=== PATIENT | male | born 1950 | race Caucasian/White ===

== ENCOUNTER 2017-11-29 15:59 | Emergency (ER) | payer OTHER ==
[~2017-11-29] VITALS: Ht 167.6 cm; Wt 84.0 kg
[~2017-11-29 15:59] MED LIST: Z.0.NO CURRENT MEDS
[2017-11-29 16:38] VITALS: BP 148/73; PULSE 58; RESP 16; TEMP 98.1; O2SAT 100
--- NOTE | 2017-11-29 17:01 | RADRPT ---
EXAM DATE: 11/29/2017 4:58 PM EDT AGE/SEX: 67 years / Male INDICATIONS: Pain, laceration left posterior hand,3rd finger CLINICAL DATA: This is the patient's initial encounter. Patient reports that signs and symptoms have been present for 1 day and indicates a pain score of 4/10. MEDICAL/SURGICAL HISTORY: None. None. COMPARISON: No prior exams available for comparison. FINDINGS: There are prominent degenerative changes in the wrist most significantly at the thumb carpal joint an d in the hand, predominantly distally. No evidence of fracture, dislocation or bony destruction. Ther e is no evidence of radiodense foreign body. CONCLUSION: Arthritic changes. No acute bony findings. Electronically signed by: Shlomo Miller MD 11/29/2017 5:00 PM EDT
[2017-11-29] MEDS ORDERED: vitamins (19:16)
--- NOTE | 2017-11-29 19:23 | PD ---
HPI Chief Complaint: Laceration/Skin Injury Time Seen by Provider: 19:17 Travel History International Travel<30 days: No Contact w/Intl Traveler<30days: No Traveled to known affect area: No History of Present Illness HPI 67-year-old right-hand dominant white male presents emergency department with a laceration to the dorsal surface of his left middle finger from a router at work today. He had gone to an urgent care and was sent to the ER for further evaluation. He denies any numbness, tingling or weakness. Pain is mild. He has not had a tetanus shot over 5 years. [facility] Past Medical History Narrative Medical Psoriasis, back injury, spontaneous pneumothorax Diminished Hearing: No Medical other: Yes (psoriasis) Respiratory: Yes (collapse lung) Immunizations Current: Yes Tetanus Vaccination: > 5 Years Influenza Vaccination: No Past Surgical History Narrative Surgical Right rotator cuff repair, back surgery, pneumothorax with chest tube Other Surgery: Yes Social History Alcohol Use: No Tobacco Use: No Substance Use: No Allergies-Medications (Allergen,Severity, Reaction): Uncoded Allergies: MECUROCROM (Allergy, Mild, 10/23/06) Reported Meds & Prescriptions Reported Meds & Active Scripts Active Reported [vitamins] Review of Systems General / Constitutional: No: Fever Eyes: No: Visual changes HENT: No: Headaches Cardiovascular: No: Chest Pain or Discomfort Respiratory: No: Shortness of Breath Gastrointestinal: No: Abdominal Pain Genitourinary: No: Dysuria Musculoskeletal: Positive: Pain, No: Limited ROM Skin: No Rash Neurologic: No: Weakness Psychiatric: No: Depression Endocrine: No: Polydipsia Hematologic/Lymphatic: No: Easy Bruising Physical Exam Narrative GENERAL: This is a well-nourished, well-developed patient, in no apparent distress. SKIN: No rashes, ecchymoses or lesions. Warm and dry. HEAD: Atraumatic. Normocephalic. EYES: PERRL, EOMI, no discharge or injection. No scleral icterus. EARS: Clear NOSE: Nasal turbinates appear normal. THROAT: Mucosa pink and moist. Airway patent. NECK: Trachea midline. supple, moves head freely. LUNGS: Clear to auscultation. CV: Regular in rhythm. ABDOMEN: Soft nontender. EXT: No clubbing cyanosis or edema. The left middle finger reveals a jagged laceration on the dorsal surface proximally. Patient is able to fully extend and flex his finger freely at the MCP, PIP and DIP joint. He has intact sensation with good cap refill. No sensory loss. Data Data Last Documented VS Vital Signs Date Time Temp Pulse Resp B/P (MAP) Pulse Ox O2 Delivery O2 Flow Rate FiO2 11/29/17 16:38 98.1 58 16 148/73 (98) 100 Orders Orders Hand, Complete ([id number]) (11/29/17 ) Lidocaine 1% Inj (Xylocaine 1% Inj) (11/29/17 19:30) Ed Discharge Order (11/29/17 19:44) Tetanus/Diphtheria Tox Adult (Tetanus/Di (11/29/17 20:00) MDM Medical Decision Making Medical Screen Exam Complete: Yes Emergency Medical Condition: Yes Medical Record Reviewed: Yes Interpretation(s) Last 24 hours Impressions Hand X-Ray 11/29/17 0000 Signed Impressions: CONCLUSION: Arthritic changes. No acute bony findings. Differential Diagnosis MDM: High Differential diagnoses: Fracture, sprain, strain, dislocation, contusion, neurovascular injury Narrative Course Patient's tetanus status updated. Patient's wound is cleansed and sutured. X- rays were performed no bony injury. No foreign body. Procedures Procedure Narrative LACERATION LOCATION: Dorsal proximal middle finger LENGTH: 2.3 cm NUMBER OF STITCHES/RICHY: 5 REPAIR: The area of the laceration was prepped with Betadine and sterilely draped. The laceration was infiltrated with 1% lidocaine. The wound was copiously irrigated and explored without evidence of foreign body, tendon injury or neurovascular injury. The extensor tendon was visualized completely and was not involved. The wound was closed using 5-0 nylon. This was a single layer repair. A sterile dressing was applied. The patient was advised to keep the dressing clean and dry. Patient tolerated the procedure well. Diagnosis Primary Impression: Laceration of left middle finger Qualified Codes: S61.213A - Laceration without foreign body of left middle finger without damage to nail, initial encounter Patient Instructions: General Instructions Additional Instructions: Rest. Elevation. Keep clean and dry. Daily wound care with soap, water, Neosporin. Tylenol and Advil for pain. Sutures out in 14 days. Return to the ER for any problems. Med/Other Pt SpecificInfo: Wound Care Disposition: 01 DISCHARGE HOME Condition: Devyn Denny Nov 29, 2017 19:23
[2017-11-29] MEDS ORDERED: LIDOCAINE HCL 1% 30 ML VIAL INFIL ONE (19:30)
[2017-11-29] MEDS ORDERED: TETANUS/DIPHTHERIA TOXOID ADULT 0.5 ML VIAL IM ONE (20:00)
== END 2017-11-29 20:09 | disposition home or self-care (01) ==
LOC: NEPD 15:59
DX: S61.213A Laceration without foreign body of left middle finger without damage to nail, initial encounter (principal); W31.89XA Contact with other specified machinery, initial encounter; Y99.0 Civilian activity done for income or pay; Z23 Encounter for immunization; Z88.8 Allergy status to other drugs, medicaments and biological substances
CPT/HCPCS: 12001; 73130; 90471; 90714